=== PATIENT | male | born 1990 | race Caucasian/White ===

== ENCOUNTER 2018-10-03 15:32 | Emergency (ER) | payer SELFPAY ==
[2018-10-03] MEDS ORDERED: Sodium Chloride 0.9% 100 ML ONE (15:56)
[2018-10-03] MEDS ORDERED: CEFAZOLIN 1 GM VIAL ONE (15:56)
[2018-10-03] MEDS ORDERED: Sodium Chloride 0.9% 1,000 ML ONE ×2 (15:56→19:52)
[2018-10-03] MEDS ORDERED: Morphine 4 MG/ML VIAL ONE ×2 (15:56→16:36)
[2018-10-03] MEDS ORDERED: Ondansetron PF 4 MG/2 ML Vial ONE (15:56)
[2018-10-03 16:08] LABS: #Basophils 0.1 thou/uL (0.0-0.2); #Eosinphils 0.1 thou/uL (0.0-0.7); #Lymphocytes 3.2 thou/uL (1.20-3.40); #Monocytes 0.9 thou/uL (0.11-0.59); #Neutrophils 6.9 thou/uL (1.40-6.50); %Eosinophils 0.5 % (0.0-10.0); %Lymphocytes 29.1 % (21.0-51.0); %Monocytes 7.6 % (0.0-10.0); %Neutrophils 61.9 % (42.0-75.0); Hemoglobin 15.1 g/dL (14.0-18.0); Mean Corpuscular HGB CONC 33.3 g/dL (32.0-36.0); Mean Corpuscular Hemoglobin 29.9 pg (27.0-31.0); Mean Corpuscular Volume 89.8 fL (78.0-98.0); Mean Platelet Volume 6.6 fL (7.4-10.4); Platelet Count 275 thou/uL (130-400); RBC Distribution Width 11.8 % (11.5-14.5); Red Blood Cell (RBC) Count 5.04 mill/uL (4.70-6.10); White Blood Cell (WBC) Count 11.1 thou/uL (4.8-10.8)
[2018-10-03] MEDS ORDERED: Lidocaine 1% w/Epinephrine 1:100K 30 ML VIAL ONE (16:12)
[2018-10-03 16:14] LABS: INR-International Normal Ratio 1.2; PTT 30.6 SEC (22.9-36.1); Prothrombin Time 15.4 SEC (12.0-14.7)
[2018-10-03 16:20] LABS: Anion Gap 20 mmol/L (10-20); BUN (Urea Nitrogen) 24 mg/dL (8.9-20.6); Calc. Creatinine Clearance 0 mL/min (70-130); Calcium 9.8 mg/dL (7.8-10.44); Carbon Dioxide 16 mmol/L (22-29); Chloride 107 mmol/L (98-107); Estimated GFR-MDRD 68; Glucose 97 mg/dL (70-105); Potassium 3.6 mmol/L (3.5-5.1); Sodium 139 mmol/L (136-145)
[2018-10-03] MEDS ORDERED: Ketorolac Tromethamine 30 MG/ML VIAL ONE (16:37)
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
[2018-10-03] MEDS ORDERED: Bacitracin Zinc 1 Packet ONE (17:33)
== END 2018-10-03 17:54 | disposition home or self-care (01) ==
LOC: NAV ERS 15:32
DX: S41.111A Laceration without foreign body of right upper arm, initial encounter (principal); F41.9 Anxiety disorder, unspecified; F31.9 Bipolar disorder, unspecified; F43.10 Post-traumatic stress disorder, unspecified; F17.210 Nicotine dependence, cigarettes, uncomplicated; Z79.899 Other long term (current) drug therapy; Z79.01 Long term (current) use of anticoagulants; X50.1XXA Overexertion from prolonged static or awkward postures, initial encounter
CPT/HCPCS: 12002; 80048; 85025; 85610; 85730; 96361; 96365; 96375; 96376; J0690; J1885; J2001; J2270; J2405; J7050

== ENCOUNTER 2019-11-11 22:42 | Emergency (ER) | payer SELFPAY ==
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
[2019-11-11] MEDS ORDERED: predniSONE 20 MG TAB ONE (23:54)
== END 2019-11-12 00:09 ==
LOC: NAV ERS 22:42
DX: S13.4XXA Sprain of ligaments of cervical spine, initial encounter (principal); S40.022A Contusion of left upper arm, initial encounter; L25.9 Unspecified contact dermatitis, unspecified cause; F41.9 Anxiety disorder, unspecified; F31.9 Bipolar disorder, unspecified; F43.10 Post-traumatic stress disorder, unspecified; F17.210 Nicotine dependence, cigarettes, uncomplicated; V67.9XXA Unspecified occupant of heavy transport vehicle injured in collision with fixed or stationary object in traffic accident, initial encounter
CPT/HCPCS: 70450; 72125; J7512; L0120